=== PATIENT | male | born 1990 | race Caucasian/White ===

== ENCOUNTER 2017-04-14 17:04 | Emergency (ER) | payer MEDICAID | END 2017-04-14 18:10 | disposition home or self-care (01) | LOC: D.ER 17:04 | DX: S93.401A Sprain of unspecified ligament of right ankle, initial encounter (principal); W06.XXXA Fall from bed, initial encounter; Y93.89 Activity, other specified; Y92.013 Bedroom of single-family (private) house as the place of occurrence of the external cause; F17.200 Nicotine dependence, unspecified, uncomplicated ==